=== PATIENT | male | born 1945 | race Two or more races ===

== ENCOUNTER 2023-02-06 13:06 | Inpatient (IN) | payer OTHER ==
[~2023-02-06] VITALS: Ht 182.9 cm; Wt 108.9 kg
[2023-02-06] MEDS ORDERED: AMOX-CLAV 500-1 EACH (14:16)
[2023-02-06] MEDS ORDERED: AZELASTIN-FLUTI23 GM NS (14:16)
[2023-02-06] MEDS ORDERED: DEXAMETHASONE2 MG PO (14:16)
[2023-02-06] MEDS ORDERED: LISINOPRIL40 MG PO (14:17)
[2023-02-06] MEDS ORDERED: GABAPENTIN400 MG PO (14:17)
== END 2023-02-18 14:55 | disposition home or self-care (01) | DRG 177 ==
LOC: ER 13:06 → ICU 17:41 → ICU-2 17:41 → ICU 02-07 02:16
PROVIDERS: General Practice; Internal Medicine Infectious Disease; ADMIT Internal Medicine; ATTEND Internal Medicine
PROC: BW24ZZZ Computerized Tomography (CT Scan) of Chest and Abdomen (ICD-10-PCS; 2023-02-06)
PROC: XW033E5 Introduction of Remdesivir Anti-infective into Peripheral Vein, Percutaneous Approach, New Technology Group 5 (ICD-10-PCS; principal; 2023-02-07)
PROC: 5A0945A Assistance with Respiratory Ventilation, 24-96 Consecutive Hours, High Flow/Velocity Cannula (ICD-10-PCS; 2023-02-07)
PROC: B34KZZZ Ultrasonography of Bilateral Upper Extremity Arteries (ICD-10-PCS; 2023-02-15)
PROC: BW40ZZZ Ultrasonography of Abdomen (ICD-10-PCS; 2023-02-16)
DX: U07.1 COVID-19 (principal); A41.89 Other specified sepsis; G82.50 Quadriplegia, unspecified; J12.82 Pneumonia due to coronavirus disease 2019; J18.9 Pneumonia, unspecified organism; E87.1 Hypo-osmolality and hyponatremia; F05 Delirium due to known physiological condition; N39.0 Urinary tract infection, site not specified; B96.5 Pseudomonas (aeruginosa) (mallei) (pseudomallei) as the cause of diseases classified elsewhere; R13.19 Other dysphagia; I11.9 Hypertensive heart disease without heart failure; I25.10 Atherosclerotic heart disease of native coronary artery without angina pectoris; E66.09 Other obesity due to excess calories; Z68.39 Body mass index [BMI] 39.0-39.9, adult; Z74.01 Bed confinement status; R60.0 Localized edema; M79.89 Other specified soft tissue disorders; I48.91 Unspecified atrial fibrillation